=== PATIENT | female | born 1955 | race Caucasian/White ===

== ENCOUNTER 2017-04-11 10:06 | Outpatient (CLI) | payer MEDICAID ==
[2017-04-11] MEDS ORDERED: diphenhydrAMINE 25 MG CAP PO ONE (10:45)
== END 2017-04-11 17:40 | disposition home or self-care (01) ==
LOC: FOBOP 10:06
PROVIDERS: ATTEND Internal Medicine Hematology & Oncology
PROC: 30233N1 Transfusion of Nonautologous Red Blood Cells into Peripheral Vein, Percutaneous Approach (ICD-10-PCS; principal; 2017-04-11)
DX: C18.9 Malignant neoplasm of colon, unspecified (principal)

== ENCOUNTER 2017-05-03 09:50 | Inpatient (IN) | payer MEDICAID ==
[2017-05-03] MEDS ORDERED: LIDOCAINE 2% JELLY 5 ML TUBE TP ONE (10:12)
--- NOTE | 2017-05-03 10:44 | EDPHY ---
H & P Time Seen by Provider: 05/03/17 10:32 HPI/ROS: CHIEF COMPLAINT: Vomiting blood HISTORY OF PRESENT ILLNESS: The patient is a 61-year-old female who presents emergency department with an episode of hematemesis. The patient has a history of colon cancer. She has not received any treatment since December because she had been failing treatments. She is attempting to get into a clinical trial for treatment of colon cancer. It is noted that she continually has drops in her hematocrit. Because of this the trial physician requested that she have an endoscopy. This was performed last Saturday by Dr. López. She had been doing well since the procedure. However, today she had an episode of epistaxis. She states that is approximately 1/2 cough. She has no abdominal pain. No lightheadedness or dizziness. She is scheduled to go to the transfusion center for transfusion today. REVIEW OF SYSTEMS: My complete review of systems is negative except as mentioned in the HPI. Past Medical/Surgical History: Colon cancer, umbilical hernia Past surgical history: Colectomy Smoking Status: Never smoked Physical Exam: T 36.9degrees, 94/35, 106, 16, 97 GENERAL: No acute distress, alert. HEENT: Eyes normal to inspection, normal pharynx, no signs of dehydration. NECK: No thyromegaly, no lymphadenopathy, supple. RESPIRATORY: Clear to auscultation bilaterally, no rales, rhonchi or wheezing. CVS: Regular rate and rhythm, no rubs, murmurs, or gallops. ABDOMEN: Soft, nontender, palpable mass (patient states this is old), nondistended, no organomegaly. BACK: Normal to inspection, no CVA tenderness. SKIN: Normal color, no rash, warm, dry. No pallor. EXTREMITIES: No pedal edema, no calf tenderness, no joint swelling. NEURO/PSYCH: Alert and oriented, normal mood and affect, normal motor sensory exam. Constitutional: Initial Vital Signs Temperature (C) 36.7 C 05/03/17 10:00 Heart Rate 106 H 05/03/17 10:00 Respiratory Rate 16 05/03/17 10:00 Blood Pressure 94/35 L 05/03/17 10:00 O2 Sat (%) 97 05/03/17 10:00 O2 Delivery Mode Room Air Allergies/Adverse Reactions: ampicillin Allergy (Verified 04/11/17 10:45) latex Allergy (Verified 04/11/17 10:45) Home Medications: Medication Instructions Recorded Hydrocodon-Acetaminoph 2.5-325 05/03/17 Vancomycin 05/03/17 Medical Decision Making ED Course/Re-evaluation: In the emergency department I discussed possible etiologies with the patient. Laboratory studies were obtained. Patient's hematocrit is 19. This is dropped from 20/7 yesterday. Patient has an INR of 1.4. Chemistry panel is unremarkable. Mildly elevated LFTs. I discussed the results with the patient. I paged both Dr. Bradford and Dr. López. I discussed the case with Internal Medicine. I also discussed the case with Dr. Sterling who was on-call for Dr. López. I spoke with Dr. Perla who was on- call for Dr. Bradford. I discussed the plan with the patient. I answered all her questions. I rechecked the patient on numerous occasions. She was stable throughout her stay. Differential Diagnosis: My differential includes but is not limited to Nichol-Carson tear, esophageal perforation, gastric perforation, esophagitis, gastritis, peptic ulcer disease - Data Points Laboratory Results: Laboratory Results 05/03/17 10:30 05/03/17 10:30 05/03/17 05/03/17 05/03/17 10:30 10:30 10:30 WBC 8.02 10^3/uL 10^3/uL (3.80-9.50) RBC 2.11 10^6/uL L 10^6/uL (4.18-5.33) Hgb 5.9 g/dL L* g/dL (12.6-16.3) Hct 19.5 % L D % (38.0-47.0) MCV 92.4 fL fL (81.5-99.8) MCH 28.0 pg pg (27.9-34.1) MCHC 30.3 g/dL L g/dL (32.4-36.7) RDW 18.4 % H % (11.5-15.2) Plt Count 125 10^3/uL L 10^3/uL (150-400) MPV 11.6 fL fL (8.7-11.7) Neut % (Auto) 86.1 % H % (39.3-74.2) Lymph % (Auto) 7.5 % L % (15.0-45.0) Ashley % (Auto) 4.7 % % (4.5-13.0) Eos % (Auto) 0.7 % % (0.6-7.6) Baso % (Auto) 0.4 % % (0.3-1.7) Nucleat RBC Rel Count 0.0 % % (0.0-0.2) Absolute Neuts (auto) 6.90 10^3/uL H 10^3/uL (1.70-6.50) Absolute Lymphs (auto) 0.60 10^3/uL L 10^3/uL (1.00-3.00) Absolute Monos (auto) 0.38 10^3/uL 10^3/uL (0.30-0.80) Absolute Eos (auto) 0.06 10^3/uL 10^3/uL (0.03-0.40) Absolute Basos (auto) 0.03 10^3/uL 10^3/uL (0.02-0.10) Absolute Nucleated RBC 0.00 10^3/uL 10^3/uL (0-0.01) Immature Gran % 0.6 % % (0.0-1.1) Immature Gran # 0.05 10^3/uL 10^3/uL (0.00-0.10) Platelet Estimate DECREASED L (ADEQ) Hypochromasia 1+ H Smear Review By Pending PT 17.1 SEC H SEC (12.0-15.0) INR 1.40 H (0.83-1.16) APTT 33.3 SEC SEC (23.0-38.0) Sodium 137 mEq/L mEq/L (134-144) Potassium 4.6 mEq/L mEq/L (3.5-5.2) Chloride 104 mEq/L mEq/L (97-110) Carbon Dioxide 22 mEq/l mEq/l (22-31) Anion Gap 11 mEq/L mEq/L (8-16) BUN 32 mg/dL H mg/dL (7-23) Creatinine 0.7 mg/dL mg/dL (0.6-1.0) Estimated GFR > 60 Glucose 103 mg/dL H mg/dL (70-100) Calcium 8.1 mg/dL L mg/dL (8.5-10.4) Total Bilirubin 0.9 mg/dL mg/dL (0.1-1.4) Conjugated Bilirubin 0.5 mg/dL mg/dL (0.0-0.5) Unconjugated Bilirubin 0.4 mg/dL mg/dL (0.0-1.1) AST 103 IU/L H IU/L (14-46) ALT 40 IU/L IU/L (9-52) Alkaline Phosphatase 432 IU/L H IU/L (38-126) Total Protein 5.6 g/dL L g/dL (6.3-8.2) Albumin 2.9 g/dL L g/dL (3.5-5.0) Lipase 41 IU/L IU/L (23-300) Medications Given: Discontinued Medications Sodium Chloride (Ns) 500 mls @ 1,500 mls/hr IV ONCE ONE Stop: 05/03/17 13:05 Last Admin: 05/03/17 13:33 Dose: 500 mls Lidocaine (Lidocaine 2% Jelly) 1 kristine TP EDNOW ONE Stop: 05/03/17 10:13 Last Admin: 05/03/17 10:35 Dose: 1 kristine Departure - Departure Disposition: [facility] Inpatient Acute Clinical Impression: Anemia Qualifiers: Anemia type: unspecified type Qualified Code(s): D64.9 - Anemia, unspecified Hematemesis Qualifiers: Nausea presence: without nausea Qualified Code(s): K92.0 - Hematemesis Condition: Good
[2017-05-03 10:56] LABS: % IMMATURE GRANULYOCYTES 0.6 % (0.0-1.1); ABSOLUTE IMMATURE GRANULOCYTES 0.05 10^3/uL (0.00-0.10); ADD DIFF? NO; ADD MORPH? YES; ADD SCAN? NO; ATYPICAL LYMPHOCYTE FLAG 20 (0-99); FRAGMENT RBC FLAG 20 (0-99); HEMATOCRIT 19.5 % (38.0-47.0); LEFT SHIFT FLG 0 (0-99); LIPEMIA HEMOLYSIS FLAG 80 (0-99); MEAN CELL HEMOGLOBIN CONCENTR. 30.3 g/dL (32.4-36.7); MEAN CELL VOLUME 92.4 fL (81.5-99.8); MEAN PLATELET VOLUME 11.6 fL (8.7-11.7); PLATELET CLUMPS FLAG 10 (0-99); PLATELET COUNT 125 10^3/uL (150-400); RED BLOOD CELL COUNT 2.11 10^6/uL (4.18-5.33); RED CELL DISTRIBUTION WIDTH 18.4 % (11.5-15.2)
[2017-05-03 11:03] LABS: HEMOGLOBIN 5.9 g/dL (12.6-16.3)
[2017-05-03 11:05] LABS: INR 1.4 (0.83-1.16); PROTIME(PATIENT) 17.1 SEC (12.0-15.0)
[2017-05-03 11:06] LABS: APTT 33.3 SEC (23.0-38.0)
[2017-05-03 11:17] LABS: ALANINE AMINOTRANSFERASE 40 IU/L (9-52); ALBUMIN 2.9 g/dL (3.5-5.0); ALKALINE PHOSPHATASE 432 IU/L (38-126); ANION GAP 11 mEq/L (8-16); ASPARTATE AMINOTRANSFERASE 103 IU/L (14-46); BILIRUBIN,TOTAL 0.9 mg/dL (0.1-1.4); BILIRUBIN-CONJUGATED 0.5 mg/dL (0.0-0.5); BILIRUBIN-UNCONJUGATED 0.4 mg/dL (0.0-1.1); CALCIUM 8.1 mg/dL (8.5-10.4); CARBON DIOXIDE 22 mEq/l (22-31); CHLORIDE 104 mEq/L (97-110); CREATININE 0.7 mg/dL (0.6-1.0); GLOMERULAR FILTRATION RATE > 60; GLUCOSE 103 mg/dL (70-100); POTASSIUM 4.6 mEq/L (3.5-5.2); SODIUM 137 mEq/L (134-144); TOTAL PROTEIN 5.6 g/dL (6.3-8.2)
[2017-05-03 11:28] LABS: PLATELET ESTIMATE DECREASED (ADEQ)
[2017-05-03 11:30] LABS: HYPOCHROMIA 1+
[2017-05-03] MEDS ORDERED: NS 500 ML IV ONE (12:46)
[2017-05-03] MEDS ORDERED: ACETAMINOPHEN 325 MG TAB PO PRN (12:49)
[2017-05-03] MEDS: ONDANSETRON 4 MG/2 ML VIAL IVP PRN (16:06)
[2017-05-03] MEDS: PANTOPRAZOLE SODIUM 40 MG in NS 100 ML IV SCH ×2 (16:54→21:59)
--- NOTE | 2017-05-03 18:53 | PDGENHP ---
History & Physical Chief Complaint: hematemesis History of Present Illness: The patient was feeling well until early this am when she had sudden onset of abdominal ache followed by a hematemesis of she believes 1/2 cup. The pain resolved and she has had no more emesis since then. She has no other symptoms and feels fine now. Notably no prior emesis, no prior pain. No hx of ulcer disease, no hx of bleeding disorder, no use of NSAIDS, no anticoagulant. Importantly she has ongoing significant anemia, in the setting of prior colon cancer treatment with metastatic disease. She is trying to get into a new trial that requires Hg of 9, so she underwent EGD and colonoscopy [address] López. I spoke to Dr López, and his findings were : 2 "tiny" distal esophageal varices, and some gastric polyps, and one colon polyp. There were 2 gastric biopsies done. The varices were felt to be of very low risk for bleeding. ROS. no other sxs on 10 sx reviews. PMH. 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 lives w . no tobacco or etoh. Family: cancer Relevant Physical Exam: vitals reviewed: initial BP low and pulse high but quickly normalized with IV fluids. exam: alert oriented relaxed. skin warm dry. good capillary refill in digits. resps easy. lungs clear. heart regular. abd soft nondistended nontender, no mass. no edema. joints nl. no petechiae or bruises. neurologic no focal changes. no adenopathy. ASSESSSMENT : 1-acute upper gi bleed: just had egd two days ago, seems biopsies are most likely cause, varices are described as tiny and of low risk. comes in hemodynamically stable but with decreased Hg. 2- post hemorrhagic anemia, with decrease from her chronic anemia of unknown cause. transfusion is currently indicated. she has plans for outpatient capsule endoscopy to evaluate chronic problem. 3- metastatic colon CA, hoping to get to a new chemo trial. 4- wishes to be full cor. PLANS: -inpatient admission anticipating need for > 48 hours of monitoring. -iv fluids. -npo. -ppi iv. -follow hg closely. -GI has been called by the ER to see pt. -dvt proph by mechanical only due to bleeding
--- NOTE | 2017-05-03 19:12 | GCON ---
[f rep st] CONSULTATION DATE OF CONSULTATION: 05/03/2017 REFERRING PHYSICIAN: Dr. Handy CHIEF COMPLAINT: Hematemesis. I am asked to see this patient in consultation by Dr. Handy for chief complaint of hematemesis. HISTORY OF PRESENT ILLNESS: Patient is a 61-year-old, complex past medical history, including metast atic colon cancer not responding well to therapy. She has significant anemia. Underwent an upper an d lower endoscopy by Dr. López on 05/01/2017. At that time, she had small esophageal varices noted wi th a hiatal hernia. Small bowel biopsies were obtained. Colon had removal of a hyperplastic polyp. Anastomosis looked good. She did well until this morning when she had a single episode of hematemes is. Noted bright red blood, about a half a cup. She has no GERD symptoms, no dysphagia, no prior hi story of peptic ulcer disease. She does take ibuprofen in the form of hydrocodone with ibuprofen. T here has been no melena or bright red blood per rectum. She has in fact had no bowel movement since her colonoscopy earlier this week. The patient does have chronic significant anemia, which is why th e EGD and colon were done, still with unclear cause for underlying anemia. She does have known liver mets with elevated LFTs. ALLERGIES: Ampicillin and latex. CURRENT MEDICATIONS: Hydrocodone with ibuprofen, vancomycin. PAST MEDICAL HISTORY: Notable for metastatic colon cancer to liver, lung, peritoneum and adnexa. Si gnificant anemia in the process of evaluation. SOCIAL HISTORY: The patient never smoked. FAMILY HISTORY: Noncontributory. REVIEW OF SYSTEMS: I performed a complete review of systems which is negative except for the pertine nt positives and negatives noted in the HPI. PHYSICAL EXAM: VITALS: Afebrile, BP 113/48, pulse 71. GENERAL: The patient is alert and oriented. No obvious scleral icterus. HEENT: No oral lesions. CARDIOVASCULAR: Regular rate and rhythm. C HEST: Clear to auscultation. ABDOMEN: Distended. She has umbilical hernia. She has a firm mass i n the left lower quadrant. NEUROLOGIC: Nonfocal. SKIN: No rashes. LABORATORY DATA: Shows hematocrit of 19.1 with hemoglobin of 5.9, pro time is 17.1, with an INR 1.40 . BUN is 32, creatinine 0.7, alkaline phosphatase 432, AST 103, ALT 40, total bilirubin is 0.9. ASSESSMENT: 1. Hematemesis. 2. Severe anemia with acute on chronic. 3. Metastatic colon cancer including to liver. 4. Elevated LFTs with alkaline phosphatase of 442. ASSESSMENT: 1. Liver metastases with elevated liver function tests. 2. Recent upper endoscopy with small bowel biopsy and small esophageal varices. The cause of her bleeding is unclear, perhaps from her recent biopsies. Of concern are her esophagea l varices, although from report these were small. Patient does have liver metastases, likely the cau se of portal hypertension, and I would be concerned that these could be bleeding. She appears hemody namically stable, although her anemia is quite significant. I do think she may benefit from an upper endoscopy. Overall, patient would be high risk given her metastatic colon cancer, but I think this could be done safely, and that if she continues to bleed the benefits would outweigh the risks. PLAN: Agree with PPI. I would lean towards octreotide if this can be provided. I have discussed th is with the hospitalist. Recommend transfusion and then suggest upper endoscopy when she is resuscit ated. Thank you for this consult. /[id number]/MODL
[2017-05-03] MEDS ORDERED: HYDROCODONE PO PRN (20:34)
[2017-05-03] MEDS ORDERED: IBUPROFEN PO PRN (20:34)
[2017-05-03] MEDS: VANCOMYCIN 125 MG/2.5 ML UDL PO SCH (21:58)
[2017-05-03] MEDS: NS 1,000 ML IV SCH (21:59)
[2017-05-03 22:47] LABS: HEMATOCRIT 21.8 % (38.0-47.0)
[2017-05-04 06:56] LABS: HEMOGLOBIN 6.7 g/dL (12.6-16.3)
[2017-05-04 07:36] LABS: ANION GAP 4 mEq/L (8-16); CARBON DIOXIDE 23 mEq/l (22-31); CHLORIDE 109 mEq/L (97-110); CREATININE 0.6 mg/dL (0.6-1.0); GLOMERULAR FILTRATION RATE > 60; GLUCOSE 78 mg/dL (70-100); POTASSIUM 4.2 mEq/L (3.5-5.2); SODIUM 136 mEq/L (134-144)
--- NOTE | 2017-05-04 08:33 | HOSPPROG ---
Hospitalist Progress Note Assessment/Plan: DIAGNOSES: 1-acute upper gi bleed: just had egd two days ago, seems biopsies are most likely cause, varices are described as tiny and of low risk. comes in hemodynamically stable but with decreased Hg. 2- post hemorrhagic anemia, with decrease Hg from her chronic anemia of unknown cause (chronic Hg around 8 over past sevral weeks, sees Dr Bradford in hematol clinic. transfusion is currently indicated. she has plans for outpatient capsule endoscopy to evaluate chronic problem. 3- metastatic colon CA, hoping to get to a new chemo trial. 4- wishes to be full cor. PLANS: -one more unit RBC transfusion and follow closely -continue PPI -continue monitoring -npo for moment -I reviewed w Dr Parker, plan is to go forward w EGD at this time SUBJECTIVE: Had one further episode hematemesis last night, and hg only up < 1 point after 2 units of rbc, indicating further bleeding Will review w GI but at this point egd seems indicated Further transfusion is indicated and she agrees to that OBJECTIVE Vitals reviewed: Stable without fever Exam: alert oriented skin warm dry color ok resps not labored lungs clear BSs heart regular abd soft nondistended nontender, bowel sounds present limbs warm, no edema iv site ok Objective: Vital Signs Temp Pulse Resp BP Pulse Ox 36.6 C 90 16 124/55 H 94 05/04/17 07:48 05/04/17 07:48 05/04/17 07:48 05/04/17 07:48 05/04/17 07:48 Laboratory Results 05/04/17 06:35 05/04/17 06:35 05/03/17 05/04/17 05/05/17 06:59 06:59 06:59 Intake Total 1020 Output Total 1 Balance 1019 PT 17.1 SEC (12.0-15.0) H 05/03/17 10:30 INR 1.40 (0.83-1.16) H 05/03/17 10:30 - Time Spent With Patient Time Spent with Patient: greater than 35 minutes Time Spent with Patient: Greater than 35 minutes spent on this patients care, greater than 50% of time spent counseling, educating, and coordinating care regarding the above mentioned plan. ICD10 Worksheet Patient Problems: Problems Problem Status Onset Anemia Acute Hematemesis Acute C. difficile diarrhea Acute ~02/07/17
[2017-05-04] MEDS: PANTOPRAZOLE SODIUM 40 MG in NS 100 ML IV SCH ×2 (08:37→20:29)
[2017-05-04] MEDS: VANCOMYCIN 125 MG/2.5 ML UDL PO SCH ×2 (08:37→20:29)
--- NOTE | 2017-05-04 15:01 | PDANEPAE ---
ANE History of Present Illness 61 YO FEMALE WITH RECENT gi BLEED. ANE Past Medical History - Pulmonary History Hx Oxygen in Use at Home: No Hx Sleep Apnea: No Sleep Apnea Screening Result - Last Documented: Negative - Endocrine History Hx Diabetes: No - Cancer History Hx Cancer: Yes Cancer History Comment: colorectal cancer with mets to liver lungs peritoneum abdomen - GI History Gastrointestinal History Comment: GI bleed. - Chronic Pain History Chronic Pain: Yes ANE Review of Systems Review of Systems: - Systems Constitutional: Reports: malaise Gastrointestinal: Reports: vomitting (blood) ANE Patient History - Allergies Allergies/Adverse Reactions: ampicillin Allergy (Verified 05/03/17 14:32) Rash latex Allergy (Verified 05/03/17 14:32) Rash - Home Medications Home medications: home medication list seen and reviewed Home Medications: HYDROcodone/IBUPROFEN [Hydrocodone-Ibuprofen 7.5-200] 1 each PO BID PRN [Last Taken 05/03/17] Vancomycin [Vancomycin (*)] 250 mg PO BID 05/03/17 [Last Taken 05/02/17] - NPO status NPO Status: no food or drink >8 hours NPO Since - Liquids (Date): 05/04/17 NPO Since - Liquids (Time): 00:00 NPO Since - Solids (Date): 05/04/17 NPO Since - Solids (Time): 00:00 - Anes Hx Anes Hx: no prior problems - Smoking Hx Smoking Status: Never smoked Marijuana use: No - Family Anes Hx Family Anes Hx: neg - N/A ANE Labs/Vital Signs - Labs Result Diagrams: 05/04/17 06:35 05/04/17 06:35 - Vital Signs Blood Pressure: 132/48 Heart Rate: 86 Respiratory Rate: 17 O2 Sat (%): 95 Height: 167.64 cm Weight: 54.204 kg ANE Physical Exam - Airway Mallampati Score: Class 1 Mouth exam: normal dental/mouth exam - Pulmonary Pulmonary: no respiratory distress - Cardiovascular Cardiovascular: systolic murmur - ASA Status ASA Status: IV ANE Anesthesia Plan Anesthesia Plan: GA with mask Total IV Anesthesia: Yes
[2017-05-04] MEDS ORDERED: PROPOFOL 200 MG/20 ML VIAL ONE ×2 (15:06)
[2017-05-04] MEDS ORDERED: LIDOCAINE 2% 5 ML SDV ONE (15:06)
[2017-05-04] MEDS ORDERED: DEXAMETHASONE 4 MG/ML VIAL ONE (15:06)
[2017-05-04] MEDS ORDERED: PROMETHAZINE HCL 25 MG/ML INJ IVP PRN (15:28)
[2017-05-04] MEDS ORDERED: NALOXONE HCL 0.4 MG/ML INJ IVP PRN (15:28)
[2017-05-04] MEDS ORDERED: fentaNYL 100 MCG/2 ML INJ IVP PRN (15:28)
[2017-05-04] MEDS ORDERED: ONDANSETRON 4 MG/2 ML VIAL IVP PRN (15:28)
--- NOTE | 2017-05-04 15:35 | POSTANESTH ---
Post Anesthetic Evaluation Cardiovascular Status: Normal, Stable Respiratory Status: Normal, Stable Level of Consciousness/Mental Status: Can Participate in Eval, Moderately Sleepy Pain Control: Adequate, Prn Tx Ordered Nausea/Vomiting Control: Adequate, Prn Tx Ordered Complications Possibly Related to Anesthesia: None Noted
--- NOTE | 2017-05-04 15:39 | GIREPORT ---
[facility] Surgical Services - Endoscopy Department Patient Name: Yandy Lynne Procedure Date: 05/04/2017 2:52 PM Patient Type: Inpatient Attending MD/ ER Physician: Tito Sanchez MD Procedure: Upper GI endoscopy Indications: Hematemesis, Melena, Acute post hemorrhagic anemia Providers: Tito Sanchez MD Medicines: Monitored Anesthesia Care Complications: No immediate complications. Description of Procedure: After obtaining informed consent, the endoscope was passed under direct vision. Throughout the procedure, the patient's blood pressure, pulse, and oxygen saturations were monitored continuous ly. The Endoscope was introduced through the mouth, and advanced to the second part of duodenum. The upper GI endoscopy was accomplished without difficulty. The patient tolerated the procedure well . Findings: Three columns of non-bleeding grade II varices were found in the lower third of the esophagus, 3 8 cm from the incisors. They were 8 mm in largest diameter. Stigmata of recent bleeding were evident and red samuel signs were present. Four bands were successfully placed with complete eradication, resu lting in deflation of varices. There was no bleeding during, and at the end, of the procedure. 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 For hemostasis, one hemostatic clip was successfully placed. There was no bleeding during, or at the end, of the procedure. The gastric fundus, gastric body and gastric antrum were normal. A few erosions without bleeding were found in the second portion of the duodenum. The duodenal bulb, first portion of the duodenum and third portion of the duodenum were normal. Estimated Blood Loss: Estimated blood loss: none. Post Op Diagnosis: - Recently bleeding grade II esophageal varices. Completely eradicated. Banded. 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 Clip was placed. - Normal gastric fundus, gastric body and antrum. - Duodenal erosions without bleeding. - Normal duodenal bulb, first portion of the duodenum and third portion of the duodenum. - No specimens collected. Recommendation: - Return patient to hospital [facility] for ongoing care. - Clear liquid diet today. Attending Participation: I personally performed the entire procedure. Tito Sanchez MD Tito Sanchez MD 05/04/2017 3:39:07 PM Number of Addenda: 0 Note Initiated On: 05/04/2017 2:52 PM [email or web address]
--- NOTE | 2017-05-04 16:03 | ASMTCMCOM ---
CM Note CM Note Notes: Pt with hx of colon ca admitted for bleed. Pt had upper endo today. Her DC needs are TBD, C/M to follow. Date Signed: 05/04/2017 04:02 PM Electronically Signed By:Nga Stark LCSW
--- NOTE | 2017-05-05 02:42 | SOAPPROG ---
SOAP Progress Note Assessment/Plan: Assessment: 1. UGI Bleed; likely secondary to esophageal varices(banded) vs. AVM of proximal stomach(clipped).; no active bleeding at present. 2. Post-hemorrhagic anemia with S/P blood transfusions yesterday, CBC pending this am. 3. Metastatic colon cancer with mets to liver and lungs. Plan: 1. Advance diet to regular starting with breakfast. 2. Check CBC this morning. Tito Sanchez M.D. 05/05/17 02:43 Subjective: CC: UGI Bleed. Interval HPI: Patient without hematemesis nausea or vomiting. Tolerated po clears. One dark stool last night. Objective: Vital Signs Temp Pulse Resp BP Pulse Ox 36.5 C 69 16 111/59 L 95 05/05/17 00:00 05/05/17 00:00 05/05/17 00:00 05/05/17 00:00 05/05/17 00:00 Laboratory Results 05/04/17 06:35 05/04/17 06:35 05/03/17 05/04/17 05/05/17 05:59 05:59 05:59 Intake Total 1020 2134 Output Total 1 Balance 1019 2134 PT 17.1 SEC (12.0-15.0) H 05/03/17 10:30 INR 1.40 (0.83-1.16) H 05/03/17 10:30 Physical Exam - Physical Exam General Appearance: alert, no apparent distress Respiratory: lungs clear, normal breath sounds Cardiac/Chest: regular rate, rhythm Abdomen: normal bowel sounds, non-tender, soft Skin: warm/dry Neuro/Psych: alert, normal mood/affect, oriented x 3 ICD10 Worksheet Patient Problems: Problems Problem Status Onset Anemia Acute Hematemesis Acute C. difficile diarrhea Acute ~02/07/17
[2017-05-05] MEDS: NS 1,000 ML IV SCH ×2 (03:00→15:03)
[2017-05-05 05:33] LABS: % IMMATURE GRANULYOCYTES 0.6 % (0.0-1.1); ABSOLUTE IMMATURE GRANULOCYTES 0.05 10^3/uL (0.00-0.10); ADD DIFF? NO; ADD MORPH? NO; ADD SCAN? NO; ATYPICAL LYMPHOCYTE FLAG 0 (0-99); FRAGMENT RBC FLAG 0 (0-99); HEMATOCRIT 25.2 % (38.0-47.0); HEMOGLOBIN 8.1 g/dL (12.6-16.3); LEFT SHIFT FLG 0 (0-99); LIPEMIA HEMOLYSIS FLAG 80 (0-99); MEAN CELL HEMOGLOBIN 28.8 pg (27.9-34.1); MEAN CELL HEMOGLOBIN CONCENTR. 32.1 g/dL (32.4-36.7); MEAN CELL VOLUME 89.7 fL (81.5-99.8); MEAN PLATELET VOLUME 10.7 fL (8.7-11.7); PLATELET CLUMPS FLAG 0 (0-99); PLATELET COUNT 53 10^3/uL (150-400); RED BLOOD CELL COUNT 2.81 10^6/uL (4.18-5.33)
--- NOTE | 2017-05-05 09:30 | HOSPPROG ---
Hospitalist Progress Note Assessment/Plan: 61-year-old female who experienced a severe upper GI bleed. She was found to have esophageal varices that were banded and of an AVM was clipped in the stomach. There was no active bleeding at the time of the EGD. Patient is new to me today. -acute upper GI bleed, acute blood loss anemia. EGD showed varices and an AVM was clipped. The varices were banded. The bleeding seems to resolved. -acute blood loss anemia: Hemoglobin at this time is stable. She is status post transfusions. -metastatic colon carcinoma with mets to the liver and lungs. Post the acute illness and problems she is planning on further chemotherapy. Case was discussed and reviewed with Dr. Vivas and reviewed with Dr. Finnegan per Home. Plan: Continue PPI and continue monitoring. Will continue regular diet as she is tolerating at this time. Subjective: No complaints of chest pain shortness of breath or abdominal pain. She is moving gas below and has had 1 small bowel move Objective: Vital Signs Temp Pulse Resp BP Pulse Ox 36.4 C 60 16 120/56 L 94 05/05/17 07:44 05/05/17 07:44 05/05/17 07:44 05/05/17 07:44 05/05/17 07:44 Laboratory Results 05/05/17 05:19 05/04/17 06:35 05/04/17 05/05/17 05/06/17 05:59 05:59 05:59 Intake Total 1020 3259 Output Total 1 Balance 1019 3259 PT 17.1 SEC (12.0-15.0) H 05/03/17 10:30 INR 1.40 (0.83-1.16) H 05/03/17 10:30 - Time Spent With Patient Time Spent with Patient: greater than 35 minutes Time Spent with Patient: Greater than 35 minutes spent on this patients care, greater than 50% of time spent counseling, educating, and coordinating care regarding the above mentioned plan. - Pending Discharge Pending Discharge Within 24 Hours: No Pending Discharge Within 48 Hours: Yes Pending Discharge Date: 05/07/17 Pending Discharge Time: 11:00 - Physical Exam Constitutional: no apparent distress Eyes: PERRL, anicteric sclera Ears, Nose, Mouth, Throat: moist mucous membranes, hearing normal, no oral mucosal ulcers Cardiovascular: regular rate and rhythym, no murmur, rub, or gallop Respiratory: no respiratory distress, no rales or rhonchi Gastrointestinal: normoactive bowel sounds, soft, non-tender abdomen, no palpable masses, distension Genitourinary: no bladder fullness Skin: warm Musculoskeletal: generalized weakness Neurologic: AAOx3, CN II-XII Intact Psychiatric: interacting appropriately ICD10 Worksheet Patient Problems: Problems Problem Status Onset Anemia Acute Hematemesis Acute C. difficile diarrhea Acute ~02/07/17
[2017-05-05] MEDS: PANTOPRAZOLE SODIUM 40 MG in NS 100 ML IV SCH ×2 (10:21→20:19)
[2017-05-05] MEDS: VANCOMYCIN 125 MG/2.5 ML UDL PO SCH ×2 (10:21→20:20)
[2017-05-05 14:27] LABS: HEMATOCRIT 26.6 % (38.0-47.0); HEMOGLOBIN 8.5 g/dL (12.6-16.3)
[2017-05-05 20:23] LABS: HEMATOCRIT 26.1 % (38.0-47.0); HEMOGLOBIN 8.4 g/dL (12.6-16.3)
[2017-05-05] MEDS: ZOLPIDEM TARTRATE 5 MG TAB PO PRN (22:34)
[2017-05-06] MEDS: NS 1,000 ML IV SCH ×2 (01:30→22:02)
[2017-05-06 05:19] LABS: % IMMATURE GRANULYOCYTES 0.5 % (0.0-1.1); ABSOLUTE IMMATURE GRANULOCYTES 0.05 10^3/uL (0.00-0.10); ADD DIFF? NO; ADD MORPH? NO; ADD SCAN? NO; ATYPICAL LYMPHOCYTE FLAG 10 (0-99); FRAGMENT RBC FLAG 0 (0-99); HEMATOCRIT 26.7 % (38.0-47.0); HEMOGLOBIN 8.4 g/dL (12.6-16.3); LEFT SHIFT FLG 0 (0-99); LIPEMIA HEMOLYSIS FLAG 80 (0-99); MEAN CELL HEMOGLOBIN 28.7 pg (27.9-34.1); MEAN CELL HEMOGLOBIN CONCENTR. 31.5 g/dL (32.4-36.7); MEAN CELL VOLUME 91.1 fL (81.5-99.8); MEAN PLATELET VOLUME 11.9 fL (8.7-11.7); PLATELET CLUMPS FLAG 0 (0-99); PLATELET COUNT 72 10^3/uL (150-400); RED BLOOD CELL COUNT 2.93 10^6/uL (4.18-5.33); RED CELL DISTRIBUTION WIDTH 17.4 % (11.5-15.2)
[2017-05-06 05:40] LABS: ALANINE AMINOTRANSFERASE 40 IU/L (9-52); ALBUMIN 2.6 g/dL (3.5-5.0); ALKALINE PHOSPHATASE 384 IU/L (38-126); ANION GAP 7 mEq/L (8-16); ASPARTATE AMINOTRANSFERASE 100 IU/L (14-46); BILIRUBIN,TOTAL 1.2 mg/dL (0.1-1.4); CARBON DIOXIDE 21 mEq/l (22-31); CHLORIDE 110 mEq/L (97-110); CREATININE 0.7 mg/dL (0.6-1.0); GLOMERULAR FILTRATION RATE > 60; GLUCOSE 92 mg/dL (70-100); SODIUM 138 mEq/L (134-144); TOTAL PROTEIN 5.4 g/dL (6.3-8.2)
[2017-05-06] MEDS: PANTOPRAZOLE SODIUM 40 MG in NS 100 ML IV SCH ×2 (09:35→20:19)
[2017-05-06] MEDS: VANCOMYCIN 125 MG/2.5 ML UDL PO SCH ×2 (09:35→20:19)
--- NOTE | 2017-05-06 10:34 | HOSPPROG ---
Hospitalist Progress Note Assessment/Plan: 61-year-old female who experienced a severe upper GI bleed. She was found to have esophageal varices that were banded and of an AVM was clipped in the stomach. There was no active bleeding at the time of the EGD. CT scan in 2016 through [facility] showed slight progression of both pulmonary and GI disease. Patient was to be enrolled in a research study drug through Dr Bradford. Today she reports less appetite yet can still swallow with difficulty. -acute upper GI bleed, acute blood loss anemia. EGD showed varices and an AVM was clipped. The varices were banded. The bleeding seems to resolved.Hgb = 8.4 today and holding for last 24 hours. NO signs of bleeding. GI note appreciated. Will recommend capsule study after discharge. -acute blood loss anemia: Hemoglobin at this time is stable. She is status post transfusions. Hgb= 8.4 -metastatic colon carcinoma with mets to the liver and lungs. CT scanning at our [facility] in January 2017 showed slight progression and both pulmonary and GI disease. Case was discussed and reviewed with Dr. Vivas and reviewed with Dr. Sanchez Plan: Continue PPI and continue monitoring. Will continue regular diet as she is tolerating at this time. Disposition: Discharged tomorrow to home with possible home hospice evaluation. I will discuss this further with the patient tomorrow. Called [facility] and spoke with Rhiannon involved in research drugs for clinical trials. Had a reports that the screening is done in [place] and she spoke with the of personnel in [place] today and the patient will not be able to be screened in time to be enrolled in the study. The she will not be eligible. Rhiannon says that she will come over and speak with the patient and tell her findings. Subjective: Reports she has less appetite today but no difficulty swallowing and no increased pain shortness of breath or abdominal difficulty. Objective: Vital Signs Temp Pulse Resp BP Pulse Ox 36.8 C 70 16 122/57 H 91 L 05/06/17 09:50 05/06/17 09:50 05/06/17 09:50 05/06/17 09:50 05/06/17 09:50 Laboratory Results 05/06/17 05:10 05/06/17 05:10 05/05/17 05/06/17 05/07/17 05:59 05:59 05:59 Intake Total 3259 1600 Balance 3259 1600 PT 17.1 SEC (12.0-15.0) H 05/03/17 10:30 INR 1.40 (0.83-1.16) H 05/03/17 10:30 Laboratory Tests 05/03/17 05/03/17 05/03/17 10:30 10:30 22:20 Hgb 5.9 L* 7.0 L Plt Count INR 1.40 H 05/04/17 05/05/17 05/05/17 06:35 05:19 14:20 Hgb 6.7 L 8.1 L 8.5 L Plt Count 53 L D INR 05/05/17 05/06/17 20:20 05:10 Hgb 8.4 L 8.4 L Plt Count 72 L INR - Time Spent With Patient Time Spent with Patient: greater than 35 minutes Time Spent with Patient: Greater than 35 minutes spent on this patients care, greater than 50% of time spent counseling, educating, and coordinating care regarding the above mentioned plan. - Pending Discharge Pending Discharge Within 24 Hours: Yes Pending Discharge Date: 05/07/17 Pending Discharge Time: 11:00 - Physical Exam Constitutional: no apparent distress, chronically ill appearing, cachectic Eyes: PERRL, anicteric sclera Ears, Nose, Mouth, Throat: moist mucous membranes, hearing normal Cardiovascular: regular rate and rhythym, no murmur, rub, or gallop Respiratory: no respiratory distress, no rales or rhonchi, clear to auscultation Gastrointestinal: normoactive bowel sounds, soft, non-tender abdomen, no palpable masses, distension, other (Periumbilical hernia noted with distention without strangulation or incarceration) Genitourinary: no bladder fullness Skin: warm Musculoskeletal: generalized weakness Neurologic: AAOx3, CN II-XII Intact Psychiatric: interacting appropriately ICD10 Worksheet Patient Problems: Problems Problem Status Onset Anemia Acute Hematemesis Acute C. difficile diarrhea Acute ~02/07/17
--- NOTE | 2017-05-06 13:28 | SOAPPROG ---
ALAN Progress Note Assessment/Plan: Assessment: Plan: 05/06/17 13:25 A/P 1. UGI bleed- s/p EGD with banding of esophageal varices. Suspected cause? No clinical evidence of ongoing GI bleed. Hemoglobin stable. On diet. Recommend to change PPI to oral BID. Doubt varices are cause of chronic anemia. Recommend to proceed with capsule endoscopy as outpatient. Subjective: cc: Follow up UGIB Had BM this am. Formed. Darked brown which is her normal. No complaints of abdominal pain. Objective: Vital Signs Temp Pulse Resp BP Pulse Ox 36.7 C 69 16 131/61 H 98 05/06/17 11:49 05/06/17 11:49 05/06/17 11:49 05/06/17 11:49 05/06/17 11:49 Laboratory Results 05/06/17 05:10 05/06/17 05:10 05/05/17 05/06/17 05/07/17 05:59 05:59 05:59 Intake Total 3259 1600 Balance 3259 1600 PT 17.1 SEC (12.0-15.0) H 05/03/17 10:30 INR 1.40 (0.83-1.16) H 05/03/17 10:30 Physical Exam - Physical Exam General Appearance: alert, no apparent distress EENT: No scleral icterus (R), No scleral icterus (L) Respiratory: lungs clear, normal breath sounds Cardiac/Chest: regular rate, rhythm, No bradycardia, No tachycardia, No diastolic murmur, No systolic murmur Abdomen: normal bowel sounds, non-tender, soft, No distended, No guarding, No rebound Skin: normal color Neuro/Psych: normal mood/affect, oriented x 3 ICD10 Worksheet Patient Problems: Problems Problem Status Onset Anemia Acute Hematemesis Acute C. difficile diarrhea Acute ~02/07/17
[2017-05-06] MEDS: ONDANSETRON 4 MG/2 ML VIAL IVP PRN (15:17)
--- NOTE | 2017-05-06 16:05 | ASMTCMCOM ---
CM Note CM Note Notes: Pt will most likely discharge Independent with no additional CM needs. Case management will follow. Date Signed: 05/06/2017 04:04 PM Electronically Signed By:KVNG Smith
[2017-05-06] MEDS: HYDROmorphONE/DILAUDID 1 MG/ML INJ IVP PRN (17:29)
[2017-05-06] MEDS: ZOLPIDEM TARTRATE 5 MG TAB PO PRN (22:02)
[2017-05-07] MEDS: ONDANSETRON 4 MG/2 ML VIAL IVP PRN (04:46)
[2017-05-07] MEDS: HYDROmorphONE/DILAUDID 1 MG/ML INJ IVP PRN ×3 (04:46→16:22)
[2017-05-07 04:53] LABS: % IMMATURE GRANULYOCYTES 0.4 % (0.0-1.1); ABSOLUTE IMMATURE GRANULOCYTES 0.03 10^3/uL (0.00-0.10); ADD DIFF? NO; ADD MORPH? NO; ADD SCAN? NO; ATYPICAL LYMPHOCYTE FLAG 20 (0-99); FRAGMENT RBC FLAG 0 (0-99); HEMATOCRIT 25.5 % (38.0-47.0); HEMOGLOBIN 7.9 g/dL (12.6-16.3); LEFT SHIFT FLG 0 (0-99); LIPEMIA HEMOLYSIS FLAG 80 (0-99); MEAN CELL HEMOGLOBIN 28.6 pg (27.9-34.1); MEAN CELL VOLUME 92.4 fL (81.5-99.8); MEAN PLATELET VOLUME 10.5 fL (8.7-11.7); PLATELET CLUMPS FLAG 10 (0-99); PLATELET COUNT 57 10^3/uL (150-400); RED BLOOD CELL COUNT 2.76 10^6/uL (4.18-5.33); RED CELL DISTRIBUTION WIDTH 17.3 % (11.5-15.2)
[2017-05-07] MEDS: NS 1,000 ML IV SCH (08:33)
[2017-05-07] MEDS: PANTOPRAZOLE SODIUM 40 MG in NS 100 ML IV SCH (08:33)
[2017-05-07] MEDS: VANCOMYCIN 125 MG/2.5 ML UDL PO SCH (08:33)
[2017-05-07] MEDS: PANTOPRAZOLE SODIUM 40 MG TAB PO SCH (10:47)
[2017-05-07] MEDS: SUCRALFATE 1 GM/10 ML UDCUP PO SCH ×2 (10:58→11:54)
[2017-05-07 11:43] LABS: HEMATOCRIT 25.6 % (38.0-47.0)
--- NOTE | 2017-05-07 14:32 | ASMTCMCOM ---
CM Note CM Note Notes: Patient discharged home with no additional Case management needs apparent at this time. Date Signed: 05/07/2017 02:32 PM Electronically Signed By:KVNG Smith
--- NOTE | 2017-05-07 14:49 | GDS ---
[f rep st] DISCHARGE SUMMARY KNOWN ACUTE DIAGNOSES ON THIS ADMISSION: 1. Acute gastrointestinal bleed possibly secondary to varices or an arteriovenous malformation that was later clipped in the gastric mucosa. 2. Acute blood loss anemia and hypovolemia status post transfusion of 4 units packed red blood cells . 3. Colon carcinoma, metastatic to liver and to lung. 4. Anemia with a discharge hemoglobin of 8.0 and stable. 5. Coagulopathy secondary to liver disease with an INR of 1.4, AST 100, ALT of 40. 6. Severe protein caloric malnutrition with an albumin of 2.6. Patient is eating at the time of dis charge. CONSULTATION: Gastroenterology. 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 Clipping was pe rformed and banding was performed on the varices. There was stigmata of recent bleeding noted at the time. Transfusion of 4 units packed red blood cells. HISTORY: This is a 61-year-old female with a known metastatic colon carcinoma to liver and to the [facility] who prior to admission had had an EGD and a colonoscopy where biopsies of the gastric mucosa were taken. She then presented with significant hematemesis and underwent an endoscopy which showed grade 2 varices and an AVM in the cardia of the stomach. The varices were banded and the cardia was clipp ed. There was stigmata of recent bleeding, and it was felt that the bleeding was probably secondary to the AVM and not to the varices. Following the procedure, she reports she received 4 units of pack ed red cells in support of her anemia and hypovolemia. Discharge hemoglobin was 8.0, INR 1.4. The patient at the time of admission was receiving vancomycin 250 mg b.i.d. for prophylactic manageme nt of a prior Clostridium difficile infection. She had no diarrhea during this hospitalization. The vancomycin was continued and will be continued as an outpatient. DISCHARGE MEDICATIONS: STOPPED MEDICATION: Hydrocodone with ibuprofen. CONTINUED MEDICATIONS: Vancomycin 250 mg p.o. b.i.d. for prophylactic management of a prior C diffic ile infection. She had no diarrhea during the hospitalization. The patient will also continue some [place] prescription which she has at home. PLAN: The patient is discharged to her home care. She will follow up with Dr. Isaias Bradford on 10/1 0 per previous scheduled appointment. She is to see Dr. Isak López or GI of the [facility] for placement of a capsule study in light of the possibility that her bleeding is not purely confined to the stoma ch. She will see Dr. Meli Foley, her PCP, as needed. TIME: This discharge required 45 minutes, greater than 50% to corporate counsel and coordinate care. /[id number]/MODL
--- NOTE | 2017-05-07 15:43 | SOAPPROG ---
ALAN Progress Note Assessment/Plan: Assessment: Plan: 05/06/17 13:25 A/P 1. UGI bleed- s/p EGD with banding of esophageal varices. Suspected cause? No clinical evidence of ongoing GI bleed. Hemoglobin stable. On diet. Recommend to change PPI to oral BID. Doubt varices are cause of chronic anemia. Recommend to proceed with capsule endoscopy as outpatient. 05/07/17 15:40 1. UGI bleed- s/p EGD with banding of esophageal varices. Cause of bleeding. No signs of active GI bleed. Hemoglobin normal Recommend to proceed with capsule endoscopy as outpatient. Ok to discharge from GI perspective Subjective: cc: Follow up GI bleed No complaints. Had brown BM in am. Objective: Vital Signs Temp Pulse Resp BP Pulse Ox 36.7 C 79 16 120/72 89 L 05/07/17 11:39 05/07/17 11:39 05/07/17 11:39 05/07/17 11:39 05/07/17 11:39 Laboratory Results 05/07/17 11:25 05/06/17 05:10 05/06/17 05/07/17 05/08/17 05:59 05:59 05:59 Intake Total 1600 2190 Balance 1600 2190 PT 17.1 SEC (12.0-15.0) H 05/03/17 10:30 INR 1.40 (0.83-1.16) H 05/03/17 10:30 Physical Exam - Physical Exam General Appearance: alert, no apparent distress EENT: No scleral icterus (R), No scleral icterus (L) Respiratory: normal breath sounds Cardiac/Chest: regular rate, rhythm, No bradycardia, No tachycardia, No diastolic murmur, No systolic murmur Abdomen: normal bowel sounds, soft, organomegaly, No distended, No guarding, No hepatomegaly, No splenomegaly Skin: normal color ICD10 Worksheet Patient Problems: Problems Problem Status Onset Anemia Acute Hematemesis Acute C. difficile diarrhea Acute ~02/07/17
[2017-05-07 18:11] VITALS: BP 135/58; PULSE 92; RESP 17; TEMP 97.9; O2SAT 92
== END 2017-05-07 18:24 | disposition home or self-care (01) | DRG 356 ==
LOC: OBSVTOIN 12:37 → F1N 15:03
PROVIDERS: ADMIT Student in an Organized Health Care Education/Training Program; ATTEND Internal Medicine
PROC: 30233N1 Transfusion of Nonautologous Red Blood Cells into Peripheral Vein, Percutaneous Approach (ICD-10-PCS; 2017-05-04)
PROC: 06L38CZ Occlusion of Esophageal Vein with Extraluminal Device, Via Natural or Artificial Opening Endoscopic (ICD-10-PCS; principal; 2017-05-04 13:30)
PROC: 06L24CZ Occlusion of Gastric Vein with Extraluminal Device, Percutaneous Endoscopic Approach (ICD-10-PCS; principal; 2017-05-04 13:30)
DX: I85.01 Esophageal varices with bleeding (principal); E43 Unspecified severe protein-calorie malnutrition; C18.9 Malignant neoplasm of colon, unspecified; D62 Acute posthemorrhagic anemia; C78.7 Secondary malignant neoplasm of liver and intrahepatic bile duct; C34.90 Malignant neoplasm of unspecified part of unspecified bronchus or lung; K55.21 Angiodysplasia of colon with hemorrhage; K31.7 Polyp of stomach and duodenum; I86.4 Gastric varices; E86.1 Hypovolemia
CPT/HCPCS: J1100; J1170; J1642; J2405; J2704; P9016

== ENCOUNTER 2017-05-08 21:58 | Observation (INO) | payer MEDICAID ==
--- NOTE | 2017-05-08 23:12 | EDPHY ---
H & P Stated Complaint: swelling from hips down since this afternoon, CA Hx HPI/ROS: HPI CHIEF COMPLAINT: Bilateral lower extremity swelling, recent hospitalization HISTORY OF PRESENT ILLNESS: This patient is 61-year-old female presents emergency room with bilateral lower extremity swelling that she knows around 3: 30 a.m.. Patient distally reports a cough. Nonproductive. No pain anywhere. She states she noticed 330 yesterday morning after being discharged from the hospital. She states her legs are normally very skinny she had no significant swelling to bilateral lower extremities. Denies chest pain or shortness of breath. States her abdomen is about distended is normal. Past Medical History: Colon cancer, acute GI bleed, AVM, status post 4 units of packed red blood cells, severe protein malnutrition, ascites Past Surgical History: No recent surgery Social History: Denies drugs alcohol tobacco products. Family History: Noncontributory ROS REVIEW OF SYSTEMS: A comprehensive 10 point review of systems is otherwise negative aside from elements mentioned in the history of present illness. Exam Constitutional appears malnourished, cachectic, triage nursing summary reviewed , vital signs reviewed, awake/alert. Eyes normal conjunctivae and sclera, EOMI, PERRLA. HENT normal inspection, atraumatic, moist mucus membranes, no epistaxis, neck supple/ no meningismus, no raccoon eyes. Respiratory clear to auscultation bilaterally, normal breath sounds, no respiratory distress, no wheezing. Cardiovascular rate normal, regular rhythm, no murmur, no edema, distal pulses normal. Gastrointestinal soft however distended abdomen, positive fluid wave, no rebound, no guarding, normal bowel sounds, no distension, no pulsatile mass. Genitourinary no CVA tenderness. Musculoskeletal bilateral lower extremity significant edema, no midline vertebral tenderness, full range of motion, no calf swelling, no tenderness of extremities, no meningismus, good pulses, neurovascularly intact. Skin small amount of shingles located on the back low back. pink, warm, & dry , no rash, skin atraumatic. Neurologic awake, alert and oriented x 3, AAOx3, moves all 4 extremities equally, motor intact, sensory intact, CN II-XII intact, normal cerebellar, normal vision, normal speech. Psychiatric normal mood/affect. Heme/Lymph/Immune no lymphadenopathy. Differential Diagnosis: Includes but is not limited to in a particular order peripheral edema, DVTs, renal failure, heart failure, obstructive return from colon cancer Medical Decision Making: Plan for this patient IV establishment blood draw, check kidney function, BNP, do ultrasound bilateral lower extremities rule out DVT. Re-evaluation: Ultrasound of the bilateral lower extremity The results of the study are shows edema no DVTs. I discussed the results of this study with the radiologist Dr. KWONG [id number]: Patient be admitted to the hospitalist service for peripheral edema generalized weakness. In the setting of colon cancer. Ultrasound studies do not show DVT. Most likely she has peripheral edema from volume resuscitation during the recent hospitalization as well as low albumin state. Is also possible there is something extrinsic pressing on her inferior vena cava however she does not have any abdominal pain. She does have ascites. Distended abdomen. I did not image her abdomen the hospitalist service will plan to diurese her and albumin replacement. Dr. Zhu Accepts. Source: Patient - Personal History Current Tetanus/Diphtheria Vaccine: Yes - Medical/Surgical History Hx Asthma: No Hx Chronic Respiratory Disease: No Hx Diabetes: No Hx Cardiac Disease: No Hx Renal Disease: No Hx Cirrhosis: No Hx Alcoholism: No Hx HIV/AIDS: No Hx Splenectomy or Spleen Trauma: No Other PMH: PMHx: colon CA, bowel obstruction, shingles. PSHx: colectomy, surgery for bowel obstruction, tubal ligation 1977, port implantation - Social History Smoking Status: Never smoked Constitutional: Initial Vital Signs Temperature (C) 37.4 C 05/08/17 22:11 Heart Rate 84 05/08/17 22:11 Respiratory Rate 14 05/08/17 22:11 Blood Pressure 133/62 H 05/08/17 22:11 O2 Sat (%) 93 05/08/17 22:11 O2 Delivery Mode Room Air Allergies/Adverse Reactions: ampicillin Allergy (Verified 05/03/17 14:32) Rash latex Allergy (Verified 05/03/17 14:32) Rash Home Medications: Medication Instructions Recorded Vancomycin [Vancomycin (*)] 250 mg PO BID 05/03/17 oxyCODONE IR [Oxycodone Ir (*)] 5 mg PO DAILY PRN 05/08/17 Medical Decision Making - Data Points Laboratory Results: Laboratory Results 05/09/17 00:10 05/09/17 00:10 Medications Given: Furosemide (Lasix Injection) 40 mg IVP DAILY BERNY Stop: 11/05/17 05:59 Last Admin: 05/09/17 10:47 Dose: 40 mg Melatonin (Melatonin) 3 - 6 mg PO HS [facility] Stop: 11/05/17 22:44 Last Admin: 05/09/17 23:02 Dose: 3 mg Vancomycin HCl (Vancocin Oral Liquid) 250 mg PO BID [facility] Stop: 06/08/17 09:44 Last Admin: 05/09/17 21:31 Dose: 250 mg Discontinued Medications Albumin Human (Albumin 25 % (Premix)) 50 mls @ 0 mls/hr IV ONCE ONE PRN Reason: As Directed Stop: 05/09/17 06:01 Last Admin: 05/09/17 06:26 Dose: 50 mls Vancomycin HCl (Vancocin Oral Liquid) 250 mg PO QID [facility] PRN Reason: Protocol Stop: 06/08/17 02:44 Last Admin: 05/09/17 10:37 Dose: Not Given Departure - Departure Disposition: [facility] In[facility] Acute Clinical Impression: Peripheral edema Colon cancer Qualifiers: Colon location: unspecified part of colon Qualified Code(s): C18.9 - Malignant neoplasm of colon, unspecified Ascites Qualifiers: Ascites type: other type Qualified Code(s): R18.8 - Other ascites Anemia Qualifiers: Anemia type: unspecified type Qualified Code(s): D64.9 - Anemia, unspecified Condition: Good
[2017-05-09 00:15] LABS: % IMMATURE GRANULYOCYTES 0.5 % (0.0-1.1); ABSOLUTE IMMATURE GRANULOCYTES 0.04 10^3/uL (0.00-0.10); ADD DIFF? NO; ADD MORPH? NO; ADD SCAN? NO; ATYPICAL LYMPHOCYTE FLAG 10 (0-99); FRAGMENT RBC FLAG 0 (0-99); HEMOGLOBIN 8.1 g/dL (12.6-16.3); LEFT SHIFT FLG 0 (0-99); LIPEMIA HEMOLYSIS FLAG 80 (0-99); MEAN CELL HEMOGLOBIN 28.3 pg (27.9-34.1); MEAN CELL HEMOGLOBIN CONCENTR. 31.2 g/dL (32.4-36.7); MEAN CELL VOLUME 90.9 fL (81.5-99.8); MEAN PLATELET VOLUME 11.5 fL (8.7-11.7); PLATELET CLUMPS FLAG 0 (0-99); PLATELET COUNT 76 10^3/uL (150-400); RED BLOOD CELL COUNT 2.86 10^6/uL (4.18-5.33); RED CELL DISTRIBUTION WIDTH 16.7 % (11.5-15.2)
[2017-05-09 00:35] LABS: INR 1.45 (0.83-1.16); PROTIME(PATIENT) 17.6 SEC (12.0-15.0)
[2017-05-09 00:53] LABS: ALANINE AMINOTRANSFERASE 40 IU/L (9-52); ALBUMIN 2.8 g/dL (3.5-5.0); ALKALINE PHOSPHATASE 591 IU/L (38-126); ANION GAP 8 mEq/L (8-16); ASPARTATE AMINOTRANSFERASE 85 IU/L (14-46); BILIRUBIN,TOTAL 1.2 mg/dL (0.1-1.4); BILIRUBIN-CONJUGATED 0.6 mg/dL (0.0-0.5); BILIRUBIN-UNCONJUGATED 0.6 mg/dL (0.0-1.1); CALCIUM 8.1 mg/dL (8.5-10.4); CARBON DIOXIDE 21 mEq/l (22-31); CHLORIDE 105 mEq/L (97-110); CREATININE 0.6 mg/dL (0.6-1.0); GLOMERULAR FILTRATION RATE > 60; GLUCOSE 89 mg/dL (70-100); POTASSIUM 3.7 mEq/L (3.5-5.2); SODIUM 134 mEq/L (134-144); TOTAL PROTEIN 5.6 g/dL (6.3-8.2)
[2017-05-09] MEDS ORDERED: oxyCODONE IR 5 MG TAB PO PRN (02:35)
[2017-05-09] MEDS ORDERED: diphenhydrAMINE 25 MG CAP PO PRN (02:35)
[2017-05-09] MEDS ORDERED: LORazepam 0.5 MG TAB PO PRN (02:35)
[2017-05-09] MEDS ORDERED: ONDANSETRON 4 MG/2 ML VIAL IVP PRN (02:35)
[2017-05-09] MEDS: VANCOMYCIN 125 MG/2.5 ML UDL PO SCH ×4 (04:07→21:31)
--- NOTE | 2017-05-09 05:43 | GHP ---
[f rep st] HISTORY AND PHYSICAL DATE OF ADMISSION: 05/09/2017 SOURCE: Patient provides history, appears reliable. Her EMR was also reviewed and case discussed wi th ED provider. CHIEF COMPLAINT: Lower extremity edema. HISTORY OF PRESENT ILLNESS: This is a very pleasant 61-year-old female with unfortunate diagnosis of stage IV colon cancer with metastatic disease to the liver and lungs, who presents to the emergency department today with complaints of sudden onset of lower extremity edema. Patient was recently disc harged on 05/07/2017 following several day inpatient stay for acute upper GI bleeding. It was felt t hat patient had evidence of stigmata for bleeding due to AV malformation versus less likely varices. The patient received 3 units of PRBCs during her hospital stay, as well as IV fluid supplementation. The patient was discharged home after H and H was noted to be stable, and patient reports that she had felt well relative to her acute on chronic changes until her edema increased noticeably. Patient denies any complaints of pain, erythema, open wounds, weeping, or cramping in her lower extremities. She denies any joint pain. No fevers, chills. The patient does report a mild nonproductive cough that also started in the last day associated with the lower extremity edema. The patient states she has had increased abdominal distention over the course of 4 days without significant increase in abdo fior pain. Patient has very poor appetite in the last several weeks and has had poor oral intake, l ow fluid, and low salt content intake. REVIEW OF SYSTEMS: GENERAL: Patient denies any fevers, chills. SKIN: Patient denies any acute aroldo hes, sores. ENT: Patient denies any rhinorrhea or sore throat. EYES: Patient denies any acute pradeep nges in vision or ocular pain. CV: Denies any chest pain, palpitations. RESPIRATORY: Positive for nonproductive cough without any dyspnea on exertion. GI: Patient with chronically decreased appeti te, progressive weight loss. No nausea, vomiting. No further hematemesis. No melena, hematochezia. Patient does report soft stools since discharge. : No dysuria, hematuria. MUSCULOSKELETAL: Jhonathan clemons denied any joint pain or myalgias. NEURO: Patient denies any headache, numbness, or tingling. No focal weakness. PSYCH: Patient denies. Remainder of review of systems negative except as note d above. ALLERGIES: Ampicillin and latex. HOME MEDICATIONS: As per EMR, vancomycin 250 mg p.o. b.i.d., and Oxy IR p.r.n. dose not specified. PAST MEDICAL HISTORY: Significant for: 1. Stage IV colon cancer with metastatic disease to liver and lungs. 2. History of C difficile on prophylactic therapy currently, status post her GI bleed. 3. Chronic pain. 4. History of GI bleed, likely related to AVM versus varices. 5. Coagulopathy. 6. Ascites. 7. Anemia, acute on chronic with recent history of GI bleeding. 8. Severe protein calorie malnutrition. 9. History of transfusion. PAST SURGICAL HISTORY: Significant for EGD, colonoscopy. FAMILY HISTORY: Significant for cancer. SOCIAL HISTORY: Patient is , lives with her . She denies any tobacco, drugs, or alcoh ol. CODE STATUS: Full. PHYSICAL EXAM: VITALS: On arrival to the ER, temperature is 36.6, blood pressure 135/58, pulse 92, respiratory rate 17, O2 saturation 92% on room air. Current vitals, blood pressure 131/67, pulse 76, respiratory rate is 16, O2 saturation 93% on room ai r. GENERAL: No acute distress. Very pleasant, pale, frail and cachectic-appearing female, who is l vicente quietly in bed. Her is at bedside. HEAD: Normocephalic atraumatic. EYES: Extraocula r muscles grossly intact. Pupils equal, round, react to light bilaterally and symmetric. No scleral icterus or conjunctival injection. ENT: Mucous membranes appear slightly dry. No pharyngeal eryth miguel or exudates. NECK: Supple. Trachea midline. CV: Regular rate and rhythm with a 3/6 systolic murmur. No gallops or rubs appreciated. No chest wall tenderness to palpation. RESPIRATORY: Lungs are clear to auscultation with decreased air movement at the bases, right with few crackles, left di minished more than the left. Unlabored breathing. ABDOMEN: Distended, soft, without tenderness to palpation. No rebound, guarding, or masses. Umbilical hernia is present. Positive fluid wave. : No suprapubic tenderness to palpation. No Gastelum in place. EXTREMITIES: Patient with 2 to 3+ manny ing pretibial edema in the lower extremities up to the knees. Decreased pedal pulses likely limited secondary to edema. NEURO: Cranial nerves grossly normal. No facial drooping. No focal weakness. Patient with generalized weakness, however. PSYCH: Patient awake, alert, and oriented x4. Thought process, content, and questions appropriate. Patient without any evidence of depressed mood or anxi ety. LABORATORY STUDIES: 1. WBC is 8.49, H and H is 8.1 and 26.0, with MCV of 90.9, platelet count is 76. No bands. Slightl y increased absolute neutrophil count. 2. PT 17.6, INR 1.45, PTT is 85.0. 3. Sodium is 134, potassium 3.7, chloride is 105, CO2 21, BUN 11, creatinine 0.6, GFR greater than 6 0, glucose 89, total bilirubin is 1.2, and conjugated bilirubin 0.6, ALT is 40, AST is 85, alkaline p hosphatase is 591, total protein 5.6, albumin is 2.0. 4. Venous Doppler ultrasound reviewed myself is negative for evidence of DVT. 5. Chest x-ray reviewed myself shows left pleural effusion. Moderate size, likely compressive atele ctasis. ASSESSMENT AND PLAN: This is a very pleasant, unfortunate 61-year-old female with history of stage I V metastatic colon cancer with metastases to liver and lungs, who presents to the emergency [facility] with complaints of sudden onset lower extremity edema. 1. Lower extremity edema, possibly multifactorial including history of recent fluid load in setting of liver compromise related to metastatic disease versus possible compression of malignancy on venous return from the lower extremities versus deep venous thrombosis, which has been eliminated on differ ential with a negative venous Doppler. Patient with significant protein calorie malnutrition and garrett er involvement with her cancer. We will try some Lasix with albumin to assist with diuresis. The jhonathan clemons is amenable to this plan. 2. Ascites related to liver involvement of her malignancy. Plan as above. 3. Effusion on the left. Patient with persistent cough and this is likely contributing. Will diure se with Lasix and albumin and provide patient with incentive spirometer. No antibiotics at this time as patient is afebrile, and white count is normal. 4. Colon cancer stage IV, metastases to liver and lung. 5. Anemia with history of acute on chronic anemia, recently in setting of gastrointestinal bleed. P atient without any complaints of active gastrointestinal bleeding and reports brown normal stools at this time. We will continue to monitor hemoglobin and hematocrit. No need for transfusion at this t ingrid. 6. Thrombocytopenia with additional coagulopathy and elevated PT, PTT in setting of metastatic disea se. Patient without any active bleeding at this time. No need for transfusion. 7. History of Clostridium difficile. We will continue patient's oral vancomycin prophylaxis at this time. Patient without any gastrointestinal complaints other than her ascites. 8. Severe protein calorie malnutrition. Dietary consult will be entered. 9. Fluid, electrolyte, nutrition. Holding intravenous fluids with saline lock intravenous. Low-aubrey t diet has been ordered. Dietary consult as noted above. Electrolyte replacement p.r.n. 10. Prophylaxis. Sequential compression devices if tolerated. No anticoagulation in the setting of recent gastrointestinal bleeding and thrombocytopenia. 11. Code status. Full. Patient with advanced directives in place. 12. Disposition. The patient has been admitted to observation on the oncology floor. She has been admitted to observation at this time to see if she responds appropriately to diuresis and if improvem ent, consider discharge, which patient would prefer. /[id number]/MODL
[2017-05-09] MEDS ORDERED: ALBUMIN 25% 50 ML IV ONE (06:00)
[2017-05-09] MEDS: FUROSEMIDE 40 MG/4 ML VIAL IVP SCH ×2 (06:26→10:47)
[2017-05-09 06:30] LABS: % IMMATURE GRANULYOCYTES 0.3 % (0.0-1.1); ABSOLUTE IMMATURE GRANULOCYTES 0.02 10^3/uL (0.00-0.10); ADD DIFF? NO; ADD MORPH? NO; ADD SCAN? NO; ATYPICAL LYMPHOCYTE FLAG 20 (0-99); FRAGMENT RBC FLAG 0 (0-99); HEMATOCRIT 24.4 % (38.0-47.0); HEMOGLOBIN 7.7 g/dL (12.6-16.3); LEFT SHIFT FLG 0 (0-99); LIPEMIA HEMOLYSIS FLAG 80 (0-99); MEAN CELL HEMOGLOBIN 28.6 pg (27.9-34.1); MEAN CELL HEMOGLOBIN CONCENTR. 31.6 g/dL (32.4-36.7); MEAN CELL VOLUME 90.7 fL (81.5-99.8); MEAN PLATELET VOLUME 11.7 fL (8.7-11.7); PLATELET CLUMPS FLAG 0 (0-99); PLATELET COUNT 69 10^3/uL (150-400); RED BLOOD CELL COUNT 2.69 10^6/uL (4.18-5.33); RED CELL DISTRIBUTION WIDTH 16.7 % (11.5-15.2)
[2017-05-09 06:41] LABS: INR 1.43 (0.83-1.16); PROTIME(PATIENT) 17.4 SEC (12.0-15.0)
[2017-05-09 07:09] LABS: ALANINE AMINOTRANSFERASE 36 IU/L (9-52); ALBUMIN 2.4 g/dL (3.5-5.0); ALKALINE PHOSPHATASE 534 IU/L (38-126); ANION GAP 7 mEq/L (8-16); ASPARTATE AMINOTRANSFERASE 77 IU/L (14-46); CALCIUM 7.8 mg/dL (8.5-10.4); CARBON DIOXIDE 22 mEq/l (22-31); CHLORIDE 105 mEq/L (97-110); CREATININE 0.6 mg/dL (0.6-1.0); GLOMERULAR FILTRATION RATE > 60; GLUCOSE 96 mg/dL (70-100); MAGNESIUM 1.6 mg/dL (1.6-2.3); POTASSIUM 3.6 mEq/L (3.5-5.2); SODIUM 134 mEq/L (134-144); TOTAL PROTEIN 4.9 g/dL (6.3-8.2)
--- NOTE | 2017-05-09 08:26 | HOSPPROG ---
Hospitalist Progress Note Assessment/Plan: Patient is a 61-year-old female with stage IV colon cancer with metastatic disease to the liver and lungs. She presented the emergency room with complaints of lower extremity edema. She had an inpatient stay for acute upper GI bleed. At that time she received 3 units of packed red blood cells. She was admitted earlier by Dr Zhu. I came by to check in on her. * lower extremity edema being diuresed * ascites secondary to liver involvement from her malignancy * left-sided effusion moderate size/ will follow * anemia with a history of a recent GI bleed Hemoglobin hematocrit have decreased had a drop since her recent dc/ will ask GI to see likely r/t AVM not varices * thrombocytopenia * severe protein calorie malnutrition with a BMI of 19 *HSV: on coccyx area initial concern was shingles, doesn't have the appearance of this has 2 pea size reddened areas *Stage IV colon cancer with metastatic disease to liver and lungs sees Dr Bradford in the op setting *coagulopathy: inr is elevated at 1.43 *Plan: asked Dr López to see/ she was seen recently by him Subjective: Yandy is feeling better with the lasix. Objective: Vital Signs Temp Pulse Resp BP Pulse Ox 36.9 C 73 18 141/58 H 90 L 05/09/17 07:25 05/09/17 07:25 05/09/17 07:25 05/09/17 07:25 05/09/17 07:25 Laboratory Results 05/09/17 06:20 05/09/17 06:20 PT 17.4 SEC (12.0-15.0) H 05/09/17 06:20 INR 1.43 (0.83-1.16) H 05/09/17 06:20 - Physical Exam Constitutional: not in pain, chronically ill appearing, cachectic Eyes: PERRL Ears, Nose, Mouth, Throat: hearing normal Cardiovascular: regular rate and rhythym Skin: other (coccyx area has a small peas size lesion with a smaller one below) Musculoskeletal: generalized weakness Neurologic: AAOx3 ICD10 Worksheet Patient Problems: Problems Problem Status Onset Anemia Acute Ascites Acute Colon cancer Acute Peripheral edema Acute C. difficile diarrhea Acute ~02/07/17 Hematemesis Acute
[2017-05-09] MEDS ORDERED: VANCOMYCIN 250 MG PO SCH (21:00)
[2017-05-09] MEDS ORDERED: MELATONIN 3 MG TAB PO SCH (22:45)
--- NOTE | 2017-05-09 22:51 | SOAPPROG ---
ALAN Progress Note Assessment/Plan: Assessment: Plan: 05/09/17 15:50 A/P 1. Anemia- iron deficiency. Progressive. Did have prior EGD, colonoscopy as well as repeat EGD secondary to hematemesis. She does not appear to have an active bleed at this time. Recommend to monitor H/H and transfuse as needed. Due to the need of blood transfusions as outpatient, I recommend capsule endoscopy which is currently being planned. 2. Lower extremity edema- with ascites. Suspect component secondary to liver dysfunction. Unsure how much of the portal hypertension is secondary to metastatic cancer versus intrinsic liver disease. Diuretics started and patient feeling better. Would also recommend low salt diet. 3. Dr. Bryan is taking over the service today. Please call him if needed. GI will sign off. Objective: Vital Signs Temp Pulse Resp BP Pulse Ox 36.8 C 75 12 130/62 H 92 05/09/17 22:45 05/09/17 22:45 05/09/17 22:45 05/09/17 22:45 05/09/17 22:45 Laboratory Results 05/09/17 06:20 05/09/17 06:20 05/08/17 05/09/17 05/10/17 05:59 05:59 05:59 Intake Total 340 Output Total 200 Balance 140 PT 17.4 SEC (12.0-15.0) H 05/09/17 06:20 INR 1.43 (0.83-1.16) H 05/09/17 06:20 ICD10 Worksheet Patient Problems: Problems Problem Status Onset Anemia Acute Hematemesis Acute Peripheral edema Acute Colon cancer Acute Ascites Acute C. difficile diarrhea Acute ~02/07/17
[2017-05-10 05:29] LABS: % IMMATURE GRANULYOCYTES 0.3 % (0.0-1.1); ABSOLUTE IMMATURE GRANULOCYTES 0.02 10^3/uL (0.00-0.10); ADD DIFF? NO; ADD MORPH? NO; ADD SCAN? NO; ATYPICAL LYMPHOCYTE FLAG 10 (0-99); FRAGMENT RBC FLAG 20 (0-99); HEMATOCRIT 23.7 % (38.0-47.0); HEMOGLOBIN 7.5 g/dL (12.6-16.3); LEFT SHIFT FLG 0 (0-99); LIPEMIA HEMOLYSIS FLAG 80 (0-99); MEAN CELL HEMOGLOBIN 28.3 pg (27.9-34.1); MEAN CELL HEMOGLOBIN CONCENTR. 31.6 g/dL (32.4-36.7); MEAN CELL VOLUME 89.4 fL (81.5-99.8); MEAN PLATELET VOLUME 10.3 fL (8.7-11.7); PLATELET CLUMPS FLAG 10 (0-99); PLATELET COUNT 58 10^3/uL (150-400); RED BLOOD CELL COUNT 2.65 10^6/uL (4.18-5.33); RED CELL DISTRIBUTION WIDTH 16.6 % (11.5-15.2)
[2017-05-10 05:47] LABS: ALANINE AMINOTRANSFERASE 37 IU/L (9-52); ALBUMIN 2.4 g/dL (3.5-5.0); ALKALINE PHOSPHATASE 502 IU/L (38-126); ANION GAP 8 mEq/L (8-16); ASPARTATE AMINOTRANSFERASE 77 IU/L (14-46); CALCIUM 7.8 mg/dL (8.5-10.4); CARBON DIOXIDE 26 mEq/l (22-31); CHLORIDE 101 mEq/L (97-110); CREATININE 0.6 mg/dL (0.6-1.0); GLOMERULAR FILTRATION RATE > 60; GLUCOSE 97 mg/dL (70-100); POTASSIUM 3.3 mEq/L (3.5-5.2); SODIUM 135 mEq/L (134-144)
[2017-05-10 08:18] VITALS: RESP 16
--- NOTE | 2017-05-10 09:54 | HOSPPROG ---
Hospitalist Progress Note Assessment/Plan: Patient is a 61-year-old female with stage IV colon cancer with metastatic disease to the liver and lungs. She presented the emergency room with complaints of lower extremity edema. She had an inpatient stay for acute upper GI bleed. At that time she received 3 units of packed red blood cells. She was admitted earlier by Dr Zhu. I came by to check in on her. * lower extremity edema being diuresed * ascites secondary to liver involvement from her malignancy Nonsignificant results with the diuretics. Stomach is firm will order a paracentesis reviewed this with GI and they agree with this/likely to be refractory to diuretics * left-sided effusion moderate size/ will follow * anemia with a history of a recent GI bleed Hemoglobin hematocrit have decreased had a drop since her recent dc/ will ask GI to see likely r/t AVM not varices * thrombocytopenia * severe protein calorie malnutrition with a BMI of 19 *HSV: on coccyx area initial concern was shingles, doesn't have the appearance of this has 2 pea size reddened areas *Stage IV colon cancer with metastatic disease to liver and lungs sees Dr Bradford in the op setting *coagulopathy: inr is elevated at 1.43 *Plan: get paracentesis and if feeling well, will dc Subjective: Yandy has no complaints/ feeling well. Objective: Vital Signs Temp Pulse Resp BP Pulse Ox 36.8 C 74 16 126/70 H 91 L 05/10/17 08:00 05/10/17 08:00 05/10/17 08:00 05/10/17 08:00 05/10/17 08:35 Laboratory Results 05/10/17 05:09 05/10/17 05:09 05/09/17 05/10/17 05/11/17 05:59 05:59 05:59 Intake Total 590 Output Total 200 Balance 390 PT 17.4 SEC (12.0-15.0) H 05/09/17 06:20 INR 1.43 (0.83-1.16) H 05/09/17 06:20 - Physical Exam Constitutional: not in pain, chronically ill appearing, other (thin) Eyes: PERRL Ears, Nose, Mouth, Throat: hearing normal Cardiovascular: no murmur, rub, or gallop Respiratory: no respiratory distress Gastrointestinal: ascites, distension Skin: warm, No normal color (pale) Musculoskeletal: no muscle tenderness Neurologic: AAOx3 Psychiatric: interacting appropriately, not anxious, not encephalopathic ICD10 Worksheet Patient Problems: Problems Problem Status Onset Anemia Acute Ascites Acute Colon cancer Acute Peripheral edema Acute C. difficile diarrhea Acute ~02/07/17 Hematemesis Acute
[2017-05-10] MEDS: FUROSEMIDE 40 MG/4 ML VIAL IVP SCH (11:00)
[2017-05-10] MEDS: VANCOMYCIN 125 MG/2.5 ML UDL PO SCH (11:00)
[2017-05-10 12:11] VITALS: BP 120/62; PULSE 82; TEMP 98; O2SAT 95
--- NOTE | 2017-05-10 12:14 | GCON ---
[f rep st] CONSULTATION DATE OF CONSULTATION: 05/09/2017 REFERRING PHYSICIAN: Shanell Salas NP REASON FOR CONSULTATION: Ascites. CHIEF COMPLAINT: Lower extremity swelling. HISTORY OF PRESENT ILLNESS: Yandy is a 61-year-old female with a complex medical history including metastatic colon cancer to the liver, lung, and perineum, who presented to [facility] with complaints of lower extremity swelling, as well as abdominal distention. The patient was recently admitted to [facility] with complaints of hematemesis. The patient has had progressive anemia for multiple months, and underwent an upper endoscopy and colonoscopy. Upper endoscopy revealed esophageal varices. Several days after the procedure, she vomited blood, and had a repeat endoscopy where the varices were banded. She was also noted to have a small AVM, which is unlikely the cause of bleed and was clipped. Since discharge, she has been complaining of increasing swelling of lower extremities, as well as increasing abdominal distention. She complains mainly of lower extremity swelling. This got progressively worse over the last several days. This is a very unusual symptom for her. She also complaints of a cough. She denies any exacerbating or alleviating factors for her symptoms. She complains of minimal abdominal distention. PAST MEDICAL HISTORY: 1. Metastatic colon cancer. 2. Iron deficiency anemia. 3. Liver involvement of her malignant ascites. 4. Shingles. PAST SURGICAL HISTORY: Surgery for small bowel obstruction, tubal ligation, partial colectomy. MEDICATIONS: Hydrocodone with ibuprofen. ALLERGIES: Ampicillin and latex. SOCIAL HISTORY: No significant alcohol or tobacco use. FAMILY HISTORY: Mom had colon cancer. REVIEW OF SYSTEMS: A 12-point comprehensive review of systems was asked, pertinent positives and negatives per HPI. PHYSICAL EXAM: VITAL SIGNS: Blood pressure 116/67, O2 sat 92%, temperature 36.9 , heart rate 75. GENERAL: Awake, alert, oriented x3, in no distress. HEENT: Anicteric sclerae. Mucosa moist. NECK: No JVD. CARDIOVASCULAR: Regular rate and rhythm. Positive S1, S2. LUNGS: Clear to auscultation bilaterally without wheezes, rales or rhonchi. ABDOMEN: Distended. Hard. No guarding, no rebound, soft, nontender. Positive bowel sounds. NEUROLOGIC: 2 through 12 grossly intact. PSYCH: Normal affect. Musculoskeletal: No joint effusions. LABORATORY DATA: Blood work: WBC 7.3, hemoglobin 7.7, hematocrit 24.4, platelets 69. INR 1.43. Sodium 134, potassium 3.6, chloride 105, bicarb 22, BUN 12. ST 77, ALT 36, alk phos 534. Bilateral lower extremity venous Doppler-negative for DVT. ASSESSMENT AND PLAN: 1. Lower extremity swelling-with ascites felt on physical exam. Unsure of the etiology of her lower extremity swelling. Suspect may be a component of liver dysfunction due to her metastatic colon cancer. Have started diuretics and she is currently feeling much better. If the ascites worsens, can consider paracentesis, etc. She complains of no fevers, or abdominal discomfort. 2. Anemia-iron deficiency. Progressive. Unsure of the cause of her symptoms. Did have a prior colonoscopy which was fairly unrevealing. An upper endoscopy reviewed, had varices with possibly acute bleeding from the source. However, I doubt that this is the cause of her chronic anemia. Due to her need of transfusions over the last several weeks, would recommend capsule endoscopy as an outpatient. /[id number]/MODL MTDD
[2017-05-10] MEDS ORDERED: LIDOCAINE 1% 300 MG/30 ML SDV ONE (12:31)
--- NOTE | 2017-05-10 12:40 | ASMTCMCOM ---
CM Note CM Note Notes: Spoke w/pt, re dc poc. Discussed homecare but pt politely declines, states needs more non skilled help. Her helps w/ADLs and has good friend support. CM available for any changes. Date Signed: 05/10/2017 12:40 PM Electronically Signed By:Lyssa Rodriguez RN
[2017-05-10] MEDS ORDERED: PROTOCOL POTASSIUM 1 DOSE MISC PRN (13:35)
--- NOTE | 2017-05-10 16:56 | GDS ---
[f rep st] DISCHARGE SUMMARY DISCHARGE DIAGNOSES: 1. Lower extremity edema. 2. Ascites secondary to liver involvement from her malignancy. 3. Left-sided lung effusion. 4. Anemia with a history of recent GI bleed. 5. Thrombocytopenia. 6. Severe protein calorie malnutrition with a BMI of 19. 7. Herpes simplex virus. This is noted on the coccyx area. 8. Stage IV colon cancer with metastatic disease to liver and lungs. 9. Coagulopathy. HISTORY: The patient is a very sweet 61-year-old female with stage IV colon cancer with metastatic disease to liver and lung. She presented the emergency room with complaints of lower extremity edema, as well as ascites. She was recently admitted for an acute upper GI bleed, and she received 3 units of packed red blood cells. Today is my first encounter with the patient. HOSPITAL COURSE: 1. Lower extremity edema. She was diuresed, and this is much improved with Lasix. 2. Ascites secondary to liver involvement from her malignancy. She did not have good results with the diuretics. Her abdomen was very firm and distended. She had a paracentesis today and felt markedly better. The report is not up, but per the patient they took off more than 3 L. 3. Left-sided effusion. This is moderate size. She is on room air, is asymptomatic at this time. 4. Anemia. Hemoglobin and hematocrit are lower than on her previous discharge. She will get a red blood scan study in the outpatient setting. 5. Thrombocytopenia, ongoing from her cancer. 6. Severe protein calorie malnutrition. She has a BMI of 19. 7. HSV. This is on the coccyx area. 8. Stage IV colon cancer with metastatic disease to liver and lung. She will follow up with Dr. Bradford in the outpatient setting. 9. Coagulopathy. Most recent INR is 1.43. MEDICATIONS AT DISCHARGE: Please see the EMR. New medications include Lasix and potassium p.r.n. if she has further swelling. DISCHARGE CONDITION: Stable. Blood pressure is 120/62, heart rate is 82, respiratory rate is 16, O2 saturation on room air 95%, temperature is 36.6 Celsius. DISCHARGE INSTRUCTIONS: 1. To follow up with Dr. Bradford next week. 2. To get a hemoglobin, hematocrit, and platelet count done on Saturday and results called to Dr. Bradford. She will need close monitoring. 3. To further discuss with Dr. Bradford if she may need more paracentesis down the road with her ascites. /[id number]/MODL MTDD
--- NOTE | 2017-05-10 17:40 | ASDISCHSUM ---
Discharge Information Plan Status:Home with No Needs Medically Cleared to Leave: Discharge Date:05/10/2017 05:15 PM CM D/C Disposition:Home, Routine, Self-Care ADT D/C Disposition:Home, Routine, Self-Care Projected Discharge Date:05/10/2017 05:15 PM Transportation at D/C:Family Discharge Delay Reason: Follow-Up Date:05/10/2017 05:15 PM Discharge Slot: Final Diagnosis: Placement Information Patient Contact Information Contact Name:JERMAN Relationship:Sister Address: Work Phone: City: [facility] Phone: State/Zip Code: Email: Financial Information Financial Class: Primary Plan Desc:[employer] B [employer] Primary Plan Number:[id number] Secondary Plan Desc: Secondary Plan Number: Assessment Information [facility] CM Progress Note CM Note CM Note Notes: Spoke w/pt, re dc poc. Discussed homecare but pt politely declines, states needs more non skilled help. Her helps w/ADLs and has good friend support. CM available for any changes. Date Signed: 05/10/2017 12:40 PM Electronically Signed By:Lyssa Rodriguez RN Intervention Information
== END 2017-05-10 17:15 | disposition home or self-care (01) ==
LOC: INTOOBSV 05-09 01:20 → F3E 05-09 05:01
PROVIDERS: ADMIT Family Medicine; ATTEND Internal Medicine
PROC: BW40ZZZ Ultrasonography of Abdomen (ICD-10-PCS; principal; 2017-05-09)
PROC: 0W9F3ZZ Drainage of Abdominal Wall, Percutaneous Approach (ICD-10-PCS; principal; 2017-05-09)
DX: R60.9 Edema, unspecified (principal); R18.0 Malignant ascites; J91.0 Malignant pleural effusion; C18.9 Malignant neoplasm of colon, unspecified; C78.7 Secondary malignant neoplasm of liver and intrahepatic bile duct; C78.01 Secondary malignant neoplasm of right lung; C78.02 Secondary malignant neoplasm of left lung; E43 Unspecified severe protein-calorie malnutrition; D69.59 Other secondary thrombocytopenia; D50.9 Iron deficiency anemia, unspecified; Z68.1 Body mass index [BMI] 19.9 or less, adult; B00.9 Herpesviral infection, unspecified; Z90.49 Acquired absence of other specified parts of digestive tract; Z91.040 Latex allergy status
CPT/HCPCS: 49082; 71010; 93970; 97116; 97161; 97165; 99285; G0378; J1940; P9047